=== PATIENT | male | born 1940 | race Two or more races ===

== ENCOUNTER 2016-05-06 10:43 | Emergency (ER) | payer BC, MEDICARE ==
[~2016-05-06] VITALS: Ht 182.9 cm; Wt 89.1 kg
[2016-05-06 11:00] VITALS: BP 171/83
== END 2016-05-06 13:06 | disposition home or self-care (01) ==
LOC: ER 10:55
DX: G89.29 Other chronic pain (principal); M54.5 Low back pain; M54.16 Radiculopathy, lumbar region